=== PATIENT | male | born 1995 | race Caucasian/White ===

== ENCOUNTER 2022-11-22 10:49 | Emergency (ER) | payer OTHER, SELFPAY ==
[2022-11-22] VITALS (7 sets, daily range): BP systolic 117–133; BP diastolic 72–94; PULSE 75–104; RESP 12–32; TEMP 36.5; O2SAT 100
--- NOTE | ~2022-11-22 | CT_ITS ---
EXAMINATION: CTA chest PE protocol DATE: 11/22/2022 14:59 INDICATION: Chest pain, shortness of breath, tachycardia, anxiety. Positive d-dimer. TECHNIQUE: Computed tomography angiography (CTA) of the chest was performed with 100 mL Omnipaque-350 intravenous contrast timed to evaluate the pulmonary arteries. Coronal maximum intensity projection 3D-reconstructions were created by the technologist. Automated exposure control and iterative reconst ruction technique were employed. Exam dose: 376.27 mGy-cm total exam DLP. COMPARISON: None. FINDINGS: There is diagnostic contrast enhancement of the pulmonary arteries and no evidence of pulmo nary embolism. No thoracic aortic aneurysm or dissection. Normal heart size. No pericardial or pleural effusion. No hilar or mediastinal mass lesion or lymphadenopathy. The lungs are clear of infiltrate or consolidation. Normal adrenal glands. Included upper abdominal structures are unremarkable. No significant abnormali ty of the included skeletal structures. IMPRESSION: Negative examination; no evidence of pulmonary embolism Reviewed, dictated and finalized at [facility]. Reviewed, dictated and finalized at [facility].
--- NOTE | 2022-11-22 10:51 | ECG_ITS ---
Measurements Intervals [place] Rate: 101 P: 72 ME: 143 QRS: 82 QRSD: 90 T: 44 QT: 329 QTc: 427 Interpretive Statements SINUS TACHYCARDIA POSSIBLE LEFT ATRIAL ENLARGEMENT BORDERLINE ECG NO PREVIOUS ECG AVAILABLE FOR COMPARISON Electronically Signed On 11-22-2022 19:41:17 CDT by Justus Matthew D.O.
--- NOTE | 2022-11-22 13:09 | ED.ANXIETY ---
HPI - Anxiety General Chief Complaint: Anxiety Stated Complaint: SOB Time Seen by Provider: 11/22/22 11:44 Source: patient Mode of arrival: EMS Limitations: no limitations History of Present Illness HPI narrative: Patient is a 27-year-old male who presents to the ED via EMS with anxiety. Patient reports he had an anxiety attack yesterday but was able to calm down by himself. This morning around 9:30 AM while in a meeting for work, patient states he gradually began feeling anxious. He began feeling his heart racing/palpitations, began feeling short of breath with chest tightness, nausea, tingling in his extremities. He states he was unable to calm himself at work so EMS was called. Patient reports this episode lasted approximately 15 minutes. He began feeling better en route to the ED. Upon my evaluation, patient denies any acute complaints. Denies feeling short of breath, denies chest pain, denies nausea. Denies abdominal pain. Patient has been under increased stress lately with his work and at home with his 4-month-old child. He denies previous diagnosis of anxiety, but does not currently see a doctor. He is not on any psychiatric medications. He denies previous history of heart disease or blood clots. Related Data Home Medications Medication Instructions Recorded Confirmed No Home Medications 01/25/22 01/25/22 Allergies Allergy/AdvReac Type Severity Reaction Status Date / Time No Known Allergies Allergy Verified 11/22/22 11:06 Review of Systems Review of Systems: CONSTITUTIONAL: Denies fever, chills, or sweats. CARDIOVASCULAR: See HPI. RESPIRATORY: See HPI. GASTROINTESTINAL: See HPI. GENITOURINARY: Denies dysuria or hematuria. SKIN: Denies rash or itching. MUSCULOSKELETAL: Denies back pain, joint pain, or myalgia. NEUROLOGIC: See HPI PSYCHIATRIC: See HPI. All systems reviewed & are unremarkable except as noted in HPI and below PMFSH Family History Family History Mother Patient's mother is in good health Father Family history of malignant neoplasm, Onset Age: 40 Other No family history of malignant neoplasm Social History Social History Smoking status: Never smoker Tobacco type: cigars Alcohol intake: current Substance use type: does not use Exam Narrative: GENERAL: Well appearing, well-nourished, non-toxic, in no acute distress. HEAD: Normocephalic, atraumatic. NECK: Supple. No adenopathy, no masses. RESPIRATORY: Airway patent, respirations nonlabored. Clear to auscultation bilaterally, no rales, rhonchi, wheezing. CARDIOVASCULAR: Regular rate and rhythm without murmurs, rubs, or gallops. Radial pulses 2+ and equal bilaterally. ABDOMINAL: Soft, no tenderness throughout abdomen, nondistended, no hepatosplenomegaly. Normoactive BS. MUSCULOSKELETAL: Moves all extremities. Strength/ROM intact without gross deformities. No edema. No calf tenderness. SKIN: Warm, dry, normal color. No rashes. NEURO: A&O X3. Speech clear. Cranial nerves II-XII grossly intact. Steady gait. No ataxic movements. PSYCHIATRIC: Borderline anxious. Normal interaction. Course Vital Signs Vital signs: Vital Signs Temperature 97.7 F 11/22/22 10:50 Pulse Rate 100 11/22/22 10:50 Respiratory Rate 32 H 11/22/22 10:50 Blood Pressure 132/88 11/22/22 10:50 Pulse Oximetry 100 11/22/22 10:50 Oxygen Delivery Room Air 11/22/22 10:50 Temperature 97.7 F 11/22/22 10:50 Pulse Rate 104 H 11/22/22 16:07 Respiratory Rate 12 11/22/22 16:07 Blood Pressure 130/84 11/22/22 16:07 Pulse Oximetry 100 11/22/22 16:07 Oxygen Delivery Room Air 11/22/22 10:50 MDM - Anxiety MDM Narrative Medical decision making narrative: Patient presented to ED from work with report of anxiety/panic attacks. Patient tachycardic, tachypneic upon arrival, both of
[2022-11-22 13:32] LABS: Basophils Percent Auto 0.2 % (0.2-1.2); Eosinophils Percent Auto 0.3 % (0-4.4); Hematocrit 46.9 % (42.0-52.0); Hemoglobin 15.6 g/dL (14.0-18.0); Immature Granulocyte Absolute 0.03 K/mm3 (0.00-0.031); Immature Granulocyte Percent A 0.3 % (0-0.5); Lymphocytes Absolute Auto 1.18 K/mm3 (0.9-3.2); Lymphocytes Percent Auto 13.4 % (18.3-44.2); Mean Corpuscular HGB Conc 33.3 g/dl (32-36); Mean Corpuscular Hemoglobin 29.3 pg (26-34); Mean Corpuscular Volume 88.2 fl (80-100); Mean Platelet Volume 8.7 fl (7.4-10.4); Monocytes Absolute Auto 0.5 K/mm3 (0.1-0.6); Monocytes Percent Auto 5.8 % (2.6-8.5); Platelet Count Result 227 k/mm3 (150-375); Red Blood Count 5.32 M/mm3 (4.6-6.20); Red Cell Distribution Width 12.4 % (11.5-14.5); White Blood Count 8.8 K/mm3 (4.5-10.0)
[2022-11-22 13:42] LABS: Anion Gap 8 mmol/L (8-16); Blood Urea Nitrogen 13 mg/dL (9-20); Calcium 9.7 mg/dL (8.4-10.2); Carbon Dioxide 29 mmol/L (22-30); Chloride 101 mmol/L (98-107); Estimated CRCL calculation 116 ml/min; Estimated Glomerular Filt Rate > 60; Glucose 90 mg/dL (65-110); Magnesium 1.9 mg/dL (1.6-2.3); Potassium 3.9 mmol/L (3.4-5.0); Sodium 138 mmol/L (137-145)
[2022-11-22 13:52] LABS: Troponin I < 0.012 ng/mL (0.000-0.034)
[2022-11-22 13:55] LABS: D Dimer 0.57 ug/mL (<0.48)
[2022-11-22 16:52] LABS: Troponin I < 0.012 ng/mL (0.000-0.034)
== END 2022-11-22 17:30 | disposition home or self-care (01) ==
PROVIDERS: Emergency Provider Physician Assistant; PCP Family Medicine
DX: F41.9 Anxiety disorder, unspecified (principal); R00.2 Palpitations; R07.89 Other chest pain; R00.0 Tachycardia, unspecified; R94.31 Abnormal electrocardiogram [ECG] [EKG]
CPT/HCPCS: 36415; 71275; 80048; 83735; 84484; 85025; 85380; 93005; 99284; Q9967